=== PATIENT | female | born 1940 | race Caucasian/White ===

== ENCOUNTER 2016-12-12 11:04 | Inpatient (IN) | payer OTHER ==
[2016-12-12] MEDS ORDERED: TYLENOL WITH CODEINE #3 PO ONE (11:31)
[2016-12-12] MEDS ORDERED: MOTRIN PO ONE (11:31)
--- NOTE | 2016-12-12 11:35 | PROVIDER DOCUMENTATION ---
HPI-Musculoskeletal Pain/Inj - GENERAL Chief Complaint: Numbness Stated Complaint: numbness Time Seen by Provider: 12/12/16 11:20 Source: patient - HX OF PRESENT ILLNESS-MUSKULOSKELTAL Nature of Presenting Problem: pt is a 76 y/o brought into the [facility] by [facility] with complaints of numbness on her right side. she complaints of not being able to feel her right hand and her right leg giving out on her. she states this started a few days ago. she also states she did physical therapy on monday was doing well after therapy. she states her head is hurting and she has a hx of migraines. for her migraines she takes tylenol and ibuprofen. she denies and chest pain, nausea, or vomiting. Onset/Duration: 4 days ago Timing: still present Modifying Factors: improves with: nothing Any recent injury?: No Locality of Occurance: Home Similar Symptoms Previously?: No Recently seen or treated by another doctor?: No - FALL INJURY Location of Pain/Injury: reports: head Pain Radiation: reports: no radiation Symptoms prior to fall:: reports: none Loss of Consciousness: no loss of consciousness - TRUNK INJURY Associated Symptoms: reports: other (right hand numbess and right leg numbess) - HIP/PELVIS PAIN/INJURY Pain Radiation: reports: no radiation Associated Symptoms: reports: weakness in legs/feet (weakness in right leg) - LOWER EXTREMITY PAIN/INJURY Lower Extremities Pain: leg: right - UPPER EXTREMITY PAIN/INJURY Extremities Pain Location: hand: right Review of Systems - Adult - REVIEW OF SYSTEMS - ADULT Constitutional: reports: no symptoms reported Eyes: denies: discharge, dry eyes, decreased vision, blurred vision Ears, Nose, Mouth & Throat: denies: ear discharge, ear pain, hearing loss Cardiovascular: denies: chest pain, edema, heart murmur Respiratory: denies: chronic cough, cough Gastrointestinal: reports: no symptoms reported Genitourinary: reports: no symptoms reported Musculoskeletal: reports: no symptoms reported Integumentary: reports: no symptoms reported Neurological: reports: headache/migraines (hx of migraines), numbness (right hand and right leg). denies: seizure, syncope, tremors Psychiatric: reports: no symptoms reported Endocrine: reports: no symptoms reported Hematologic/Lymphatic: reports: no symptoms reported Allergic/Immunologic: reports: no symptoms reported All Other Systems: Reviewed and Negative Past History - Adult - PAST MEDICAL HISTORY-ADULT Review of Records: reports: Nursing Assessment Review Cardiovascular: reports: HTN, heart valve problem (mvp), hyperlipidemia Gastrointestinal: reports: GERD Neurological: reports: headaches/migraines, TIA Endocrine/Immune: reports: Diabetes, thyroid disorder - PRIOR SURGERIES/PROCEDURES Surgical/Procedure History: reports: appendectomy, cholecystectomy, hysterectomy , tonsillectomy, other (cancer removal of the colon) - IMMUNIZATION STATUS Childhood Immunizations: See Nurse Assessment Flu Vaccine: See Nurse Assessment - FAMILY HISTORY Family History: reviewed, not pertinent - SOCIAL HISTORY Smoking: denies Substance Use: none/never Physical Exam-Injury Related - Physical Exam-Injury Related Initial Vital Signs Reviewed: Yes General Appearance: appears well, alert, no apparent distress Eyes: PERRL/EOMI, pink conjunctivae Head, Ears, Nose, Mouth & Throat: moist mucous membranes, normal ENT inspection Neck: non-tender, full range of motion Respiratory: chest non-tender, lungs clear, normal breath sounds, no pleuratic chest pain, no respiratory distress, no accessory muscle use Cardiovascular: normal peripheral pulses, regular rate, rhythm, no edema, no gallop, no JVD, no murmur Abdominal Exam: normal bowel sounds, non tender, soft Extremity: erythema (redness to bilateral lower leg extremities.), swelling ( bilateral lower extremities), other (numbess to right lower leg and right hand) Integumentary: warm/dry, erythema (bilateral lower leg extremities) Neurologic: grossly normal, no motor/sensory deficits Psych/Mental Status: normal mood/affect, normal thought content, normal thought process, oriented x 3 - Glascow Coma Score Best Eye Response ([place]): (4) open spontaneously Best Verbal Response ([place]): (5) oriented Best Motor Response ([place]): (6) obeys commands (15) Progress - PLAN OF CARE/RESULTS Progress/Plan/Lab Results: Orders Category Date Time Status Cardiac Monitoring DIRECTED Care 12/12/16 11:28 Active Finger Stick Blood Sugar (ED) DIRECTED Care 12/12/16 11:28 Active Saline Loc NOW Care 12/12/16 11:28 Active CHEST-1 VIEW [RAD] Stat Exams 12/12/16 11:28 Taken HEAD W/O CONTRAST [CT] Stat Exams 12/12/16 11:28 Taken CBC WITH ELECTRONIC DIFF [HEME] Stat Lab 12/12/16 11:28 Ordered COMPREHENSIVE METABOLIC PANEL [CHEM] Stat Lab 12/12/16 11:[address] Or[address]IME WITH INR PL [COAG] Stat Lab 12/12/16 11:[address] [COAG] Stat Lab 12/12/16 11:28 Ordered TROPONIN T Stat Lab 12/12/16 11:[address] W/POSS RFLX CULT [URINALYSIS] Stat Lab 12/12/16 11:28 Uncollected URINE DRUG SCREEN PL Stat Lab 12/12/16 11:28 Uncollected Acetaminophen with Codeine [Tylenol with Codeine #3] Med 12/12/16 11:31 Discontinued 1 each PO NOW ONE Ibuprofen [Motrin] Med 12/12/16 11:56 Discontinued 400 mg .ROUTE .STK-MED ONE Ibuprofen [Motrin] Med 12/12/16 11:31 Discontinued 400 mg PO NOW ONE EKG [EKG] Stat Ther 12/12/16 11:28 Ordered Vital Signs - 24 hr 12/12/16 11:05 Temperature 97.7 F Pulse Rate 79 Respiratory 18 Rate Blood Pressure 145/70 O2 Sat by Pulse 100 Oximetry Laboratory Tests 12/12/16 12/12/16 12/12/16 12:19 12:19 12:19 WBC 5.34 RBC 2.98 L Hgb 9.0 L Hct 29.4 L MCV 98.7 MCH 30.2 MCHC 30.6 L RDW Std Deviation 13.1 Plt Count 203 MPV 10.0 Immature Gran % (Auto) 0.4 Neut % (Auto) 64.4 Lymph % (Auto) 22.5 Bennett % (Auto) 6.9 Eos % (Auto) 5.2 Baso % (Auto) 0.6 Immature Gran # (Auto) 0.02 Neut # (Auto) 3.44 Lymph # (Auto) 1.20 Bennett # (Auto) 0.37 Eos # (Auto) 0.28 Baso # (Auto) 0.03 PT INR APTT (Factor Assay) Sodium 139 Potassium 4.6 Chloride 107 Carbon Dioxide 21 L Anion Gap 11 BUN 19 Creatinine 1.3 H Estimated GFR/1.73 m2 40 BUN/Creatinine Ratio 15 Glucose 233 H Calculated Osmolality 287 Calcium 9.5 Total Bilirubin < 0.15 L AST 15 ALT 10 Alkaline Phosphatase 133 H Troponin T < 0.010 Total Protein 6.4 Albumin 3.9 Globulin 3.0 Albumin/Globulin Ratio 2.0 Urine Source 12/12/16 12/12/16 12:19 13:15 WBC RBC Hgb Hct MCV MCH MCHC RDW Std Deviation Plt Count MPV Immature Gran % (Auto) Neut % (Auto) Lymph % (Auto) Bennett % (Auto) Eos % (Auto) Baso % (Auto) Immature Gran # (Auto) Neut # (Auto) Lymph # (Auto) Bennett # (Auto) Eos # (Auto) Baso # (Auto) PT 22.1 H INR 1.92 H APTT (Factor Assay) 43.2 Sodium Potassium Chloride Carbon Dioxide Anion Gap BUN Creatinine Estimated GFR/1.73 m2 BUN/Creatinine Ratio Glucose Calculated Osmolality Calcium Total Bilirubin AST ALT Alkaline Phosphatase Troponin T Total Protein Albumin Globulin Albumin/Globulin Ratio Urine Source VOIDED Orders Category Date Time Status Cardiac Monitoring DIRECTED Care 12/12/16 11:28 Active Finger Stick Blood Sugar (ED) DIRECTED Care 12/12/16 11:28 Active Saline Loc NOW Care 12/12/16 11:28 Active CHEST-1 VIEW [RAD] Stat Exams 12/12/16 11:28 Completed HEAD W/O CONTRAST [CT] Stat Exams 12/12/16 11:28 Completed CBC WITH ELECTRONIC DIFF [HEME] Stat Lab 12/12/16 12:19 Completed COMPREHENSIVE METABOLIC PANEL [CHEM] Stat Lab 12/12/16 12:19 Com[address]IME WITH INR PL [COAG] Stat Lab 12/12/16 12:[address] [COAG] Stat Lab 12/12/16 12:19 Completed TROPONIN T Stat Lab 12/12/16 12:[address] W/POSS RFLX CULT [URINALYSIS] Stat Lab 12/12/16 13:[address]UG S[address]EN [address] Stat Lab 12/12/16 13:15 Received Acetaminophen with Codeine [Tylenol with Codeine #3] Med 12/12/16 11:31 Discontinued 1 each PO NOW ONE Ibuprofen [Motrin] Med 12/12/16 11:56 Discontinued 400 mg .ROUTE .STK-MED ONE Ibuprofen [Motrin] Med 12/12/16 11:31 Discontinued 400 mg PO NOW ONE EKG [EKG] Stat Ther 12/12/16 11:28 Draft Vital Signs - 24 hr 12/12/16 11:05 Temperature 97.7 F Pulse Rate 79 Respiratory 18 Rate Blood Pressure 145/70 O2 Sat by Pulse 100 Oximetry - EKG 1 Time of EKG reading by physician:: 12:19 EKG Read and Signed by:: Brando Sanders EKG Interpretation (*Must complete 3 of following elements*): Abnormal (sinus rhythm with occasional PVC's, otherwise noraml ECG) Rate: 77 Rhythm: sinus rhytm with occasional PVC's [place]: normal QRS: normal [place] Interval: normal - XRAY 1 XRAY: Bilateral XRAY Study: Chest Impression: Normal Comparison with other Films: no changes (no change) XRAY Interpretation: Stable chest - CT/MRI 1 CT Study: Head Impression: Abnormal (no hemorrhage. chronic ischemic changes) CT Results: no blood. chronic ischemic changes - CONSULTS/PCP/HOSPITALIST Notification #1 *Consult/PCP/Hospitalist*: dr. holbrook Time Discussed: 14:07 (agrees with admission ) Consult Disposition: Admit Departure - Departure Time of Disposition Order: 14:06 DIAGNOSIS: UTI (urinary tract infection) Qualifiers: Urinary tract infection type: site unspecified Hematuria presence: without hematuria Qualified Code(s): N39.0 - Urinary tract infection, site not specified CVA (cerebral vascular accident) Qualifiers: CVA mechanism: unspecified Qualified Code(s): I63.9 - Cerebral infarction, unspecified Disposition: ADMITTED INPATIENT 09 Certified Medical Emergency: Emergent Condition: Stable Additional Instructions: ED Follow Up Instructions: You have been treated by a care provider in the Emergency Department. These instructions are being provided to you so you can have an understanding of how to care for yourself upon discharge. Upon discharge from the Emergency Department, you are responsible for making arrangements for follow-up care by a physician of your choice. Take all prescribed medications as directed. Return to the Emergency Department immediately for any new or worsening symptoms. You may call the Physician Referral phone number at [phone] to obtain a list of Physicians who are taking new patients. Referrals: Pablo Brown MD [Primary Care Provider] - Attestation - Scribe Verification/Attestation Scribe:: Aleshia Jett Acting as Scribe for:: Brando Sanders Scribe documention review:: This chart was documented by a scribe and accurately reflects the service the provider performed and the decisions made by the provider.
[2016-12-12] MEDS ORDERED: MOTRIN ONE (11:56)
--- NOTE | 2016-12-12 12:07 | Diag Imaging Result Document ---
PROCEDURE NAME: HEAD W/O CONTRAST - 12/12/2016 CT BRAIN WITHOUT CONTRAST: TECHNIQUE: Dose-reduction protocol. COMPARISON: Compared to 10/13/2016. FINDINGS: No parenchymal hemorrhage. No epidural or subdural hematoma. No subarachnoid hemorrhage. I do not identify a mass on this noncontrasted exam. There are chronic microvascular ischemic changes. No hydrocephalus. IMPRESSION: 1. No hemorrhage. 2. Chronic microvascular ischemic changes. A preliminary report was given at 11:50 a.m.
--- NOTE | 2016-12-12 12:08 | Diag Imaging Result Document ---
PROCEDURE NAME: CHEST-1 VIEW - 12/12/2016 CHEST FRONTAL TWO VIEWS: COMPARISON: 10/13/2016. FINDINGS: The lungs are well expanded. The heart is borderline mildly prominent. The vessels are not distended. No pneumonia. No pleural effusions identified. There is a granuloma in the right base. Prior orthopaedic surgery to the right shoulder. IMPRESSION: Stable chest.
[2016-12-12 12:32] LABS: MANUAL DIFF NEEDED? NO
--- NOTE | 2016-12-12 12:37 | EKG Report ---
Test Performed on : 12/12/2016 11:57:12 AM Test Reason : Stroke like symptoms Blood Pressure : / mmHG Vent. Rate : 077 BPM Atrial Rate : 077 BPM P-R Int : 200 ms QRS Dur : 096 ms QT Int : 390 ms P-R-T Axes : 079 065 069 degrees QTc Int : 441 ms Sinus rhythm. with occasional premature ventricular complexes. Otherwise normal ECG When compared with ECG of 13-OCT-2016 10:08, No significant change was found Unconfirmed Result
[2016-12-12 12:52] LABS: BASO% 0.6 % (0.0-0.8); EOS# 0.28 X1000 (0.0-0.7); EOS% 5.2 % (0.0-10.0); HEMATOCRIT 29.4 % (37.0-47.0); IMM GRAN# 0.02 X1000 (0.0-0.04); IMM GRAN% 0.4 % (0.0-0.5); LYMPH% 22.5 % (20.5-51.1); MCH 30.2 PG (27-31); MCHC 30.6 g/dL (33-37); MCV 98.7 FL (81-99); MONO# 0.37 X1000 (0.11-0.59); MONO% 6.9 % (1.7-9.3); NEUT% 64.4 % (42.2-75.2); PLT 203 X1000 (130-400); RBC 2.98 XMIL (4.2-5.4)
[2016-12-12 13:10] LABS: INR 1.92 (0.86-1.15); PROTIME 22.1 Seconds (12.1-15.5)
[2016-12-12 13:11] LABS: PTT PL 43.2 Seconds (22.6-43.9)
[2016-12-12 13:13] LABS: AGAP 11; ALBUMIN 3.9 g/dL (3.5-5.0); ALKALINE PHOSPHATASE 133 U/L (32-104); BUN 19 mg/dL (8-22); CALCIUM 9.5 mg/dL (8.8-10.2); CHLORIDE 107 mmol/L (98-107); COSMO 287; GOT 15 U/L (10-30); GPT 10 U/L (10-36); POTASSIUM 4.6 mmol/L (3.5-5.1); SODIUM 139 mmol/L (136-145); TCO2 21 mmol/L (25-35); TOTAL BILIRUBIN < 0.15 mg/dL (0.20-1.00); TOTAL PROTEIN 6.4 g/dL (6.3-8.3)
[2016-12-12 13:26] LABS: URINE SOURCE VOIDED
[2016-12-12 13:45] LABS: UR AMPHETAMINES QUAL NONE DETECTED (NONE DETECT); UR BARBITUATES QUAL NONE DETECTED (NONE DETECT); UR BENZODIAZEPIN QUAL NONE DETECTED (NONE DETECT); UR CANNABINOIDS QUAL NONE DETECTED (NONE DETECT); UR COCAINE QUAL NONE DETECTED (NONE DETECT); UR MDMA QUAL NONE DETECTED (NONE DETECT); UR METHADONE QUAL NONE DETECTED (NONE DETECT); UR METHAMPHETAMINE QUAL NONE DETECTED (NONE DETECT); UR OPIATES QUAL PRESUMPTIVE POSITIVE (NONE DETECT); UR OXYCODONE QUAL NONE DETECTED (NONE DETECT); UR PCP QUAL NONE DETECTED (NONE DETECT); UR TCA QUAL NONE DETECTED (NONE DETECT)
[2016-12-12 13:48] LABS: BILIRUBIN URINE NEGATIVE (NEGATIVE); BLOOD URINE NEGATIVE (NEGATIVE); CLARITY SL. CLOUDY (CLEAR); COLOR YELLOW; GLUCOSE URINE NEGATIVE (NEGATIVE); LEUKOCYTES URINE 1+ (NEGATIVE); NITRITE URINE POSITIVE (NEGATIVE); PROTEIN URINE NEGATIVE (NEGATIVE); UROBILINOGEN URINE NORMAL
[2016-12-12 13:49] LABS: URINE CULTURE PL NEEDED? YES; URINE EPITHELIAL CELLS <10 /HPF (<10); URINE WBC <10 /HPF (<10)
[2016-12-12] MEDS ORDERED: GENTAMICIN 60 MG in NS 50 ML IV ONE (14:08)
[2016-12-12] MEDS ORDERED: ZOFRAN IV PRN ×2 (14:10→16:14)
[2016-12-12] MEDS ORDERED: TORADOL IV PRN (14:10)
[2016-12-12] MEDS ORDERED: TYLENOL PO PRN (14:10)
[2016-12-12] MEDS: NS 1,000 ML IV SCH ×2 (14:15→18:35)
[2016-12-12 17:16] LABS: HEMOGLOBIN A1C 7.4 % (4.8-6.0)
[2016-12-12] MEDS: SEPTRA DS PO SCH (21:37)
[2016-12-12] MEDS: HUMALOG DOSE (PARKWAY) SUBQ SCH (21:39)
[2016-12-13] MEDS: NS 1,000 ML IV SCH ×3 (01:45→17:14)
--- NOTE | 2016-12-13 05:56 | HISTORY AND PHYSICAL ---
PRIMARY CARE PHYSICIAN: Pablo Brown MD. NEUROLOGIST: Dr. Aguilar. CHIEF COMPLAINT: Right lower extremity weakness. HISTORY OF PRESENT ILLNESS: This is a 76-year-old, female with a history of hypertension, mitral valve prolapse, hyperlipidemia, diabetes mellitus, hypothyroid, and chronic migraines, as well as bipolar disorder who unfortunately has been admitted multiple times over the last 4 months with TIA like symptoms. She has followed up with neurology. She has had outpatient CT, MRI, as well as inpatient CT that were all negative. Symptoms have consistently been migratory, bouncing from the left to the right. At this time, her symptoms are her right upper extremity and right lower extremity. She denies any slurred speech, blurred vision, headache, difficulty with any upper extremity fine motor movements such as putting on makeup, eating, or dressing herself. She has had a recent right shoulder surgery and she does have limited movement but this has been present since surgery. She denies no new symptoms. She states that Monday, she participated in physical therapy. She walked, did her exercises with no difficulty. In fact, they were bragging on how well she did. Then Monday, she states she was unable to move her right lower extremity or hold her weight up, although she was able to get to the bathroom through the weekend, never having an accident on herself or in her bed. She states that these are the same symptoms that she has had with the same migratory pattern that began in June of 2016. She denies any pain, numbness, change in sensation. CT of the head was performed in the emergency room which revealed no hemorrhage, chronic microvascular ischemic changes. She was found to have nitrite positive urine with less than 10 microscopic white blood cells, no reportable microscopic red blood cells but 3+ bacteria. She was given gentamicin IV, and admitted for further evaluation and treatment. PAST MEDICAL HISTORY: Diabetes with poor control, chronic depression, hypertension, mitral valve prolapse, hyperlipidemia, gastroesophageal reflux disease, hypothyroid, chronic migraines, and bipolar disorder. PAST SURGICAL HISTORY: Appendectomy, cholecystectomy, hysterectomy, tonsillectomy, shoulder surgery, and a partial colectomy secondary to colon cancer. ALLERGIES: Levaquin causes altered mental status. Penicillin causes a rash. HOME MEDICATIONS: A list will be obtained by the nursing staff. REVIEW OF SYSTEMS: A 14 point review of systems is discussed with patient with pertinent positives being migrating lower extremity weakness. She denies fever, chills, cough, congestion, dysuria, frequency, urgency, hesitancy, hematuria, constipation, melena, hematochezia, any weight loss or weight gain. PHYSICAL EXAMINATION: GENERAL: This is a 76-year-old, female who is sitting up in the bed, in no distress. VITAL SIGNS: Blood pressure is 137/55, heart rate of 77, respirations are 18, temperature is 97.7 degrees oral, with room air saturations of 100. HEENT: Head is normocephalic, atraumatic. Pupils equal, round, react to light. EOMs are intact. Sclerae anicteric. Mucous membranes are moist. NECK: Supple with trachea midline. CARDIOVASCULAR: Regular rate and rhythm. S1 and S2 appreciated. PULMONARY: Breath sounds are clear. No increased work of breathing noted. GASTROINTESTINAL: Abdomen is soft, nontender, nondistended. Bowel sounds in all 4 quadrants. EXTREMITIES: No clubbing, cyanosis. She does have 2+ pitting edema pretibial and pedal with pulses palpable x4. Calves are nontender. NEUROLOGIC: She is alert and oriented x3. Speech is clear. She has no facial droop. Forehead is spared. No tongue nor uvula deviation. Nasal flaring is equal. Shoulder shrug is equal. She has 5/5 upper extremity strength with no plantar drift. Diabetes Education Coordinator are equal. She has 5/5 finger-to- nose. Lower extremities, she has 5/5 strength. Heel, knee to park is 3/3. SKIN: Warm and dry with erythema noted, pretibial, bilateral. DIAGNOSTICS: WBC is 5.3, with a hemoglobin of 9, hematocrit 29.4, and platelets of 203,000. INR is 1.92. Sodium is 139, potassium 4.6, BUN 19, creatinine 1.3, with glucose of 233, with a hemoglobin A1c of 7.4. Troponin is less than 0.01. Urinalysis revealed positive nitrites with no reportable microscopic red blood cells, less than 10 white blood cells, 3+ bacteria. Urine drug screen is positive for opiates. Head CT revealed no acute processes. ASSESSMENT AND PLAN: 1. Urinary tract infection with cultures pending. 2. Transient neurologic event versus chronic transient ischemic attacks. The patient has had these same migratory symptoms since June of 2016 with negative scans. She has been evaluated by Dr. Aguilar who cannot find a specific neurologic component or cause. We will continue with neurological checks. 3. Diabetes with poor control. Her hemoglobin A1c was 7. We will identify her home medications and continue as appropriate. She will be placed on patterned blood glucose with sliding scale insulin. 4. Hypertension. At present, blood pressures are running in the 120s-130s/50s. We will hold her medications as we evaluate to assure that she does not have hypotension. 5. Reflux. 6. Chronic migraines. 7. Chronic kidney disease it Looks like with a baseline creatinine of 1-1.2 since June of 2015. We will trend her labs and renal dose medications as appropriate. 8. Erythema and edema to her bilateral lower extremities. As she does have a urinary tract infection with this red dimply skin noted, we will start Bactrim to cover any skin as well as urinary bacteria. The patient denies any lower extremity pain. On arrival to the floor, she was able to stand with no assistance, just with myself and a fiber technician on either side. She was able to lift herself up. She was able to hold her weight up and she shifted to turn. Once standing, she did lean backwards. When reminded, she would stand up straight but as soon as she did, she would lean backwards again, stating she was worried that she was going to fall. Physical therapy has been consulted to evaluate. Further treatments pending hospital course. Dictated by ANDER Mccall for Pablo Brown MD
[2016-12-13 06:19] LABS: HEMATOCRIT 28.3 % (37.0-47.0); HEMOGLOBIN 8.5 g/dL (12.0-16.0); MCH 29.3 PG (27-31); MCV 97.6 FL (81-99); MPV 9.9 FL (7.4-10.4); RBC 2.9 XMIL (4.2-5.4)
[2016-12-13] MEDS: PRILOSEC PO SCH (06:25)
[2016-12-13] MEDS: HUMALOG DOSE (PARKWAY) SUBQ SCH ×4 (06:25→21:58)
[2016-12-13 08:16] LABS: ALBUMIN 3.5 g/dL (3.5-5.0); CALCIUM 9.1 mg/dL (8.8-10.2); POTASSIUM 4.9 mmol/L (3.5-5.1); TOTAL BILIRUBIN 0.2 mg/dL (0.20-1.00); TOTAL PROTEIN 5.9 g/dL (6.3-8.3)
[2016-12-13] MEDS: SEPTRA DS PO SCH ×2 (09:47→20:07)
--- NOTE | 2016-12-13 13:02 | PROGRESS NOTE ---
DATE: 12/13/2016 SUBJECTIVE: Patient denies any improvement. She states that she is still weak on her right upper and lower extremities. Still notes that she is leaning to the right. OBJECTIVE: Vital Signs: Temperature 98, pulse 84, respiratory 18, BP 121/40, saturation 90% on room air. General: Patient is well developed, well nourished. Currently in no respiratory distress. She is awake, alert. Neck: Supple. Cardiovascular: Regular rate. Chest: Relatively clear. Abdomen: Soft. Extremities: Seems to have good strength in her right and left lower extremity. ASSESSMENT AND PLAN: 1. Urinary tract infection with gram-negative rods. Continue Bactrim. 2. Right lower extremity weakness. Hopefully this is secondary to her urinary tract infection and will improve. Unfortunately, she has had migratory symptoms off and on since June 2016. She has had right lower weakness, left lower weakness. She has been leaning to the left and now she is leaning to the right. She has not had any CT or MRI changes. We will continue to follow. 3. Diabetes A1c is actually better for her than it has been at 7.4. 4. Hypertension. 5. Reflux. 6. Chronic migraines. PLAN: We will continue to follow. Get physical therapy involved. Continue antibiotics. Further orders as needed.
[2016-12-13] MEDS ORDERED: ZOFRAN PO PRN (16:14)
[2016-12-13] MEDS: GLUCOPHAGE PO SCH (17:14)
[2016-12-13] MEDS: SLOW-MAG PO SCH (20:06)
[2016-12-13] MEDS: KLONOPIN PO SCH (20:06)
[2016-12-13] MEDS: TOPAMAX PO SCH (20:06)
[2016-12-13] MEDS: LAMICTAL PO SCH (20:07)
[2016-12-13] MEDS: ZANTAC PO SCH (20:07)
[2016-12-13] MEDS: PRAVACHOL PO SCH (20:07)
[2016-12-13] MEDS: ABILIFY PO SCH ×2 (20:07)
[2016-12-14] MEDS: NS 1,000 ML IV SCH ×2 (03:20→09:26)
[2016-12-14] MEDS: PRILOSEC PO SCH (06:05)
[2016-12-14] MEDS: HUMALOG DOSE (PARKWAY) SUBQ SCH ×4 (06:05→20:48)
[2016-12-14] MEDS: SYNTHROID PO SCH (06:05)
[2016-12-14] MEDS: SLOW-MAG PO SCH ×3 (09:26→20:54)
[2016-12-14] MEDS: LANTUS INSULIN (PARKWAY) SUBQ SCH (09:26)
[2016-12-14] MEDS: KLONOPIN PO SCH ×3 (09:26→20:55)
[2016-12-14] MEDS: XARELTO PO SCH (09:26)
[2016-12-14] MEDS: DIFLUCAN PO SCH (09:27)
[2016-12-14] MEDS: ZANTAC PO SCH ×3 (09:27→20:54)
[2016-12-14] MEDS: LAMICTAL PO SCH ×3 (09:27→20:55)
[2016-12-14] MEDS: GLUCOPHAGE PO SCH ×2 (09:27→16:00)
[2016-12-14] MEDS: SEPTRA DS PO SCH ×3 (09:27→20:55)
[2016-12-14] MEDS: ASPIRIN EC PO SCH (09:27)
[2016-12-14] MEDS: TOPAMAX PO SCH ×3 (09:27→20:54)
[2016-12-14] MEDS: JANUVIA PO SCH (09:27)
[2016-12-14] MEDS: FLONASE NAS SCH (09:31)
--- NOTE | 2016-12-14 11:00 | PROGRESS NOTE ---
DATE: 12/14/2016 SUBJECTIVE: Patient still complains of right lower extremity weakness. Still feels as though she is falling and leaning to the right even when she is sitting down. She denies any chest pain or palpitations. Denies any fevers or chills. Denies any dysuria or urinary frequency. Denies constipation or melena. OBJECTIVE: Vital signs: Temperature 98 degrees, pulse 74, respiratory 18, BP 140/45, saturation 100% on room air. General: The patient is a well-developed, elderly female who is currently in no respiratory distress. She is awake, alert. Neck: Supple. CV: Regular rate. Chest: Relatively clear. Extremities: She is noted to have weakness of her right lower extremity compared to her left. Skin: No rashes. Neurologic: Patient is awake, alert, oriented. There is 3/5 strength right lower extremity and 5/5 left lower extremity. ASSESSMENT: 1. Urinary tract infection. 2. Cerebrovascular accident. 3. Diabetes with poor control. 4. Sepsis secondary to urinary tract infection. 5. Hypertension. 6. Acute delirium secondary to urinary tract infection. 7. Chronic renal disease. PLAN: We will continue to treat patient with antibiotics. She is currently growing gram-negative rods in the urine. Do not have culture sensitivity. We will add Diflucan in an attempt to prevent candidiasis. We will decrease her IV fluids to 75. Continue to encourage p.o. Further orders as needed.
[2016-12-14] MEDS: TYLENOL WITH CODEINE #3 PO PRN (15:28)
[2016-12-14] MEDS: MOTRIN PO PRN (15:58)
[2016-12-14] MEDS ORDERED: ZOFRAN ODT PO PRN (18:59)
[2016-12-14] MEDS: PRAVACHOL PO SCH ×2 (19:58→20:55)
[2016-12-14] MEDS: ABILIFY PO SCH ×3 (19:58→20:54)
[2016-12-15] MEDS: NS 1,000 ML IV SCH ×2 (00:32→14:42)
[2016-12-15] MEDS: PRILOSEC PO SCH (06:36)
[2016-12-15] MEDS: SYNTHROID PO SCH (06:36)
[2016-12-15] MEDS: HUMALOG DOSE (PARKWAY) SUBQ SCH ×4 (06:37→21:58)
[2016-12-15] MEDS: SLOW-MAG PO SCH ×2 (08:46→20:34)
[2016-12-15] MEDS: ASPIRIN EC PO SCH (08:46)
[2016-12-15] MEDS: JANUVIA PO SCH (08:46)
[2016-12-15] MEDS: DIFLUCAN PO SCH (08:46)
[2016-12-15] MEDS: GLUCOPHAGE PO SCH ×2 (08:46→17:41)
[2016-12-15] MEDS: XARELTO PO SCH (08:46)
[2016-12-15] MEDS: ZANTAC PO SCH ×2 (08:46→20:33)
[2016-12-15] MEDS: LAMICTAL PO SCH ×2 (08:47→20:34)
[2016-12-15] MEDS: FLONASE NAS SCH (08:47)
[2016-12-15] MEDS: LANTUS INSULIN (PARKWAY) SUBQ SCH (08:47)
[2016-12-15] MEDS: TOPAMAX PO SCH ×2 (08:47→20:34)
[2016-12-15] MEDS: KLONOPIN PO SCH ×2 (08:47→20:34)
[2016-12-15] MEDS: SEPTRA DS PO SCH ×2 (08:47→20:34)
--- NOTE | 2016-12-15 09:13 | PROGRESS NOTE ---
DATE: 12/15/2016 SUBJECTIVE: The patient notes that she was able to ambulate to the doorway with help yesterday. She is asking to go home back to [place]. Denies any chest pain, palpitations. Denies any GI or issues. Denies any fevers or chills. OBJECTIVE: Vital Signs: Temp 98.0 degrees, pulse 87, respiratory rate 20, BP 144/49, satting 98% on room air. General: Patient is well developed, well nourished. She is currently in no respiratory distress. She is awake, alert. Neck: Supple. CV: Regular rate. Chest: Relatively clear. Abdomen: Soft. Extremities: Moves all extremities. Neurologic: No focal changes currently. Patient is noted to have 4/5 strength in her right lower and left lower extremity. She does not appear to be leaning to the right at this point. ASSESSMENT: 1. Escherichia coli urinary tract infection sensitive to Bactrim, which she is on. 2. Transient ischemic attack. 3. Metabolic encephalopathy secondary to Escherichia coli urinary tract infection, improved. 4. Diabetes with poor control. A1c is actually improving and currently down to 7. 5. Hypertension. 6. Reflux. 7. Chronic migraines. 8. Chronic kidney disease, stable. PLAN: Will continue patient on Bactrim. Will continue physical therapy. Currently [place] will not allow her to come back until she is able to ambulate better, and therefore we are looking for rehab, as well as continuing physical therapy in the hospital.
[2016-12-15] MEDS: TYLENOL WITH CODEINE #3 PO PRN (11:31)
[2016-12-15] MEDS: MOTRIN PO PRN (11:32)
[2016-12-15] MEDS: ABILIFY PO SCH ×2 (20:33)
[2016-12-15] MEDS: PRAVACHOL PO SCH (20:33)
[2016-12-16] MEDS: NS 1,000 ML IV SCH (05:33)
[2016-12-16] MEDS: HUMALOG DOSE (PARKWAY) SUBQ SCH ×4 (06:24→20:51)
[2016-12-16] MEDS: PRILOSEC PO SCH (06:34)
[2016-12-16] MEDS: SYNTHROID PO SCH (06:34)
--- NOTE | 2016-12-16 08:26 | PROGRESS NOTE ---
DATE: 12/16/2016 SUBJECTIVE: The patient notes that she was able to get out of bed a little bit yesterday. She is having less cough, less shortness of breath, less right-sided weakness. Denies any current chest pains or palpitations. Denies any GI or issues. PHYSICAL EXAMINATION: Vital Signs: Temperature 97, pulse 72, respiratory 20, blood pressure 144/55. General: The patient is a well-developed, elderly female who is currently in no respiratory distress. She is awake, alert. She is feeling better. HEENT: Normocephalic. Neck: Supple. Cardiovascular: Regular rate. Chest: Relatively clear. Abdomen: Soft. Extremities: She is noted to have much better strength in her right upper and lower extremities. She is no longer leaning to the right. Neurologic: No focal changes. LABORATORY DATA: Reviewed. ASSESSMENT: 1. Escherichia coli urinary tract infection sensitive to Bactrim. 2. Acute metabolic encephalopathy secondary to urinary tract infection. 3. Sepsis secondary to Escherichia coli urinary tract infection, resolved. 4. Diabetes. Blood sugars are stable. 5. Hypothyroidism, stable. 6. Chronic reflux. 7. Chronic hypercholesterolemia. 8. History of deep vein thrombosis, currently on Xarelto. We will continue. PLAN: We will continue the patient on her current medications. She is not on anything IV. We will continue to wait for a rehab bed, continue physical therapy, and hopefully home soon.
[2016-12-16] MEDS: LAMICTAL PO SCH ×2 (08:55→20:45)
[2016-12-16] MEDS: ZANTAC PO SCH ×2 (08:55→20:45)
[2016-12-16] MEDS: KLONOPIN PO SCH ×2 (08:56→20:45)
[2016-12-16] MEDS: DIFLUCAN PO SCH (08:56)
[2016-12-16] MEDS: JANUVIA PO SCH (08:56)
[2016-12-16] MEDS: SEPTRA DS PO SCH ×2 (08:56→20:44)
[2016-12-16] MEDS: ASPIRIN EC PO SCH (08:56)
[2016-12-16] MEDS: SLOW-MAG PO SCH ×2 (08:57→20:44)
[2016-12-16] MEDS: FLONASE NAS SCH (08:57)
[2016-12-16] MEDS: GLUCOPHAGE PO SCH ×2 (09:05→17:07)
[2016-12-16] MEDS: TOPAMAX PO SCH ×2 (09:30→20:45)
[2016-12-16] MEDS: LANTUS INSULIN (PARKWAY) SUBQ SCH (09:30)
--- NOTE | 2016-12-16 14:43 | DISCHARGE SUMMARY ---
ADMISSION DATE: 12/12/2016 DISCHARGE DATE: 12/17/2016 DIAGNOSES: 1. Escherichia coli urinary tract infection sensitive to Bactrim. 2. Acute metabolic encephalopathy secondary to urinary tract infection. Resolved. 3. Sepsis secondary to Escherichia coli urinary tract infection. Resolved. 4. Diabetes mellitus. 5. Hypothyroidism. 6. Chronic reflux. 7. Chronic hypercholesterolemia. 8. History of deep venous thrombosis, currently on Xarelto. 9. Bipolar disorder. 10. Chronic kidney disease. DIAGNOSTICS: On 12/12/2016, chest x-ray revealed stable chest, no pneumonia. On 12/12/2016, head CT revealed no hemorrhage, chronic microvascular ischemic changes. MICROBIOLOGY: Urine culture revealed E. coli. HOSPITAL COURSE: Ms. Santos presented to the emergency room complaining of right lower extremity weakness. She has had multiple admissions for the same over the last 4-6 months. It seems that she has consistently been having migratory symptoms bouncing from the left to the right. At this admission her symptoms were her right upper extremity and right lower extremity. She denied any slurred speech, blurred vision, headaches, difficulty with fine motor movements such as putting on makeup, eating or dressing herself. In fact, she was witnessed putting on makeup daily and did well. She stated that when she tried to stand that her legs would not hold her weight up, although soon after admission she stood with myself and another nurse and she was able to bear weight. She was able to shuffle her feet to get to the bedside commode. She would become afraid that she was going to fall and lean backwards, but when reminded she would stand up straight and do well. She was evaluated by physical therapy who did recommend inpatient rehab. Through the hospitalization her mental status cleared and she did return to her normal mental status. She was found have an E coli UTI that was susceptible to Bactrim. This was started and she will be discharged on Bactrim. We did follow electrolytes and replete as appropriate. Her TSH was 1.89. Blood pressures remain 120s to 150s over 50s to 60s. We did continue her home medications. Blood sugars were stable in the 130-200 range. PHYSICAL EXAMINATION: Cardiovascular: Regular rate and rhythm. S1 and S2 appreciated. Pulmonary: Breath sounds clear. No increased work of breathing noted. Chest does rise and fall symmetrically with respiration. Gastrointestinal: Abdomen is soft, nontender, nondistended. Bowel sounds in all 4 quadrants. Extremities: She no longer leans to the right. She does have 4/5 strength to bilateral upper and lower extremities. DISCHARGE ACTIVITY: Will be per rehab physical therapy recommendations. DIET: Diabetic. DISCHARGE VITAL SIGNS: Blood pressure 141/58, with a heart rate of 80, respirations 18, temperature 98 degrees oral, with room air saturations of 100. DISCHARGE MEDICATIONS: Tylenol #3, 1 every 6 hours as needed for pain. Klonopin 0.5 daily. Klonopin 1 mg at bedtime. Diflucan 100 mg daily, to be discontinued 12/27/2016. Prilosec 40 mg daily. Septra DS 1 every 12 hours, to be discontinued 12/27/2016. Abilify 20 mg at bedtime. Enteric-coated aspirin 81 mg daily. Flonase 2 sprays intranasally daily. Lantus insulin 30 units daily. Lamictal 100 mg b.i.d. Synthroid 62.5 mg daily. Magnesium chloride 2 tabs twice a day. Metformin 500 mg b.i.d. with meals. Pravachol 40 mg daily. Zantac 150 mg b.i.d. Xarelto 20 mg daily. Januvia 100 mg daily. Topamax 100 mg at bedtime. Topamax 50 mg q.a.m. DISCHARGE DISPOSITION: She is being discharged to rehab via EMS transport in stable condition. This is a greater than 30 minute discharge. Dictated by ANDER Mccall for Pablo Brown MD
[2016-12-16] MEDS ORDERED: XARELTO PO SCH (17:00)
[2016-12-16] MEDS: PRAVACHOL PO SCH (20:44)
[2016-12-16] MEDS: ABILIFY PO SCH ×2 (20:44)
[2016-12-17] MEDS: TYLENOL WITH CODEINE #3 PO PRN (02:08)
[2016-12-17] MEDS: SYNTHROID PO SCH (06:41)
[2016-12-17] MEDS: HUMALOG DOSE (PARKWAY) SUBQ SCH (06:43)
[2016-12-17] MEDS: PRILOSEC PO SCH (06:43)
[2016-12-17] MEDS: SLOW-MAG PO SCH (08:41)
[2016-12-17] MEDS: JANUVIA PO SCH (08:41)
[2016-12-17] MEDS: ZANTAC PO SCH (08:42)
[2016-12-17] MEDS: KLONOPIN PO SCH (08:42)
[2016-12-17] MEDS: ASPIRIN EC PO SCH (08:42)
[2016-12-17] MEDS: GLUCOPHAGE PO SCH (08:42)
[2016-12-17] MEDS: LAMICTAL PO SCH (08:42)
[2016-12-17] MEDS: SEPTRA DS PO SCH (08:42)
[2016-12-17] MEDS: DIFLUCAN PO SCH (08:42)
[2016-12-17] MEDS: TOPAMAX PO SCH (08:42)
[2016-12-17] MEDS: FLONASE NAS SCH (08:43)
--- NOTE | 2016-12-17 10:39 | PROGRESS NOTE ---
DATE: 12/17/2016 SUBJECTIVE: The patient notes she is feeling a little bit better this morning. She is ready to go to rehab. She denies any chest pain or palpitations. She denies any fevers or chills. PHYSICAL EXAMINATION: Vital Signs: Temperature 97, pulse 80, respiratory rate 18, BP 160/61 to 131/56. General: The patient is well-developed and well-nourished and currently in no real respiratory distress. She is awake, alert, oriented. Neck supple. CV: Regular rate. Chest relatively clear. Abdomen soft, nondistended. Extremities: Moves all extremities well. ASSESSMENT: 1. Escherichia coli urinary tract infection, improved. 2. Sepsis secondary to Escherichia coli urinary tract infection, improved. 3. Metabolic encephalopathy, improved. 4. Bipolar disorder. 5. Diabetes. PLAN: We will discharge the patient later today to rehab. Further orders if needed.
[2016-12-17 11:54] VITALS: BP 143/57
== END 2016-12-17 14:05 | DRG 871 ==
LOC: P.ED 11:04 → P.MEDSURG 11:05 → OBSVTOIN 12-14 10:32
PROVIDERS: ADMIT Family Medicine; ATTEND Family Medicine
DX: A41.9 Sepsis, unspecified organism (principal); G93.41 Metabolic encephalopathy; E11.65 Type 2 diabetes mellitus with hyperglycemia; E11.22 Type 2 diabetes mellitus with diabetic chronic kidney disease; N39.0 Urinary tract infection, site not specified; G45.9 Transient cerebral ischemic attack, unspecified; B96.20 Unspecified Escherichia coli [E. coli] as the cause of diseases classified elsewhere; I12.9 Hypertensive chronic kidney disease with stage 1 through stage 4 chronic kidney disease, or unspecified chronic kidney disease; I34.1 Nonrheumatic mitral (valve) prolapse; N18.9 Chronic kidney disease, unspecified; E78.00 Pure hypercholesterolemia, unspecified; E03.9 Hypothyroidism, unspecified; K21.9 Gastro-esophageal reflux disease without esophagitis; F31.9 Bipolar disorder, unspecified; Z79.899 Other long term (current) drug therapy; Z79.02 Long term (current) use of antithrombotics/antiplatelets; Z86.718 Personal history of other venous thrombosis and embolism; Z90.49 Acquired absence of other specified parts of digestive tract; Z80.0 Family history of malignant neoplasm of digestive organs; Z79.4 Long term (current) use of insulin; Z79.84 Long term (current) use of oral hypoglycemic drugs
CPT/HCPCS: 36415; 70450; 71010; 80053; 80305; 81001; 82948; 83036; 83735; 84100; 84443; 84484; 85025; 85027; 85610; 85730; 87077; 87088; 87186; 93005; 96365; J1580; J1815; J7030; 97110-GO; 97116-GP; 97530-GO; 97530-GP

== ENCOUNTER 2019-12-05 06:15 | Inpatient (IN) ==
--- NOTE | 2019-12-05 06:32 | Diag Imaging Result Doc PS360 ---
CT HEAD W/O CONTRAST - 12/05/2019 INDICATION: UNRESPONSIVE COMPARISON: 08/31/2018 FINDINGS: Stable mild cerebral atrophy. There is stable periventricular white matter chronic microvascular ischemia. No intracranial mass or hemorrhage. The skull is intact. There is moderate sinusitis of the left maxillary sinus. Other sinuses are clear. IMPRESSION: Cerebral white matter chronic microvascular ischemia. Sinusitis. No acute process. This exam was performed using automated exposure control, adjustment of mA or kV according to patient size, and/or use of iterative reconstruction technique Electronically signed by Low Weiss 12/05/2019 6:30 AM
--- NOTE | 2019-12-05 06:38 | PROVIDER DOCUMENTATION ---
HPI-Neurological Disorder - General Stated Complaint: UNRESPONSIVE Time Seen by Provider: 12/05/19 06:27 Allergies/Adverse Reactions: Patient Allergies Allergy/AdvReac Type Severity Reaction Status Date / Time levofloxacin [From Levaquin] Allergy Mild AMS Verified 07/19/19 15:04 Penicillins Allergy Mild RASH Verified 07/19/19 15:04 Home Medications: Home Medication List Medication Instructions Recorded Confirmed Last Taken Type Topiramate [Topamax] 100 mg PO BID 10/19/16 07/19/19 08/30/18 20:00 History Clonazepam [Klonopin] 1 mg PO QHS #15 tablet 09/21/18 07/19/19 Unknown Rx Diltiazem C.d. [Cardizem Cd] 180 mg PO DAILY capsule 09/21/18 07/19/19 Unknown Rx Folic Acid 1 mg PO DAILY tablet 09/21/18 07/19/19 Unknown Rx Furosemide [Lasix] 40 mg PO DAILY tablet 09/21/18 07/19/19 Unknown Rx Insulin Glargine [Basaglar 20 unit SUBQ QAM insuln.pen 09/21/18 07/19/19 Unknown Rx [Nonformulary]] Iron Carbonyl/Ascorbic Acid 1 each PO BID tablet 09/21/18 07/19/19 Unknown Rx [Icar-C] Lamotrigine [Lamictal] 100 mg PO BID tablet 09/21/18 07/19/19 Unknown Rx Levothyroxine [Synthroid] 75 microgm PO DAILY@0700 tablet 09/21/18 07/19/19 Unknown Rx Melatonin 3 mg PO QHS #15 tab 09/21/18 07/19/19 Unknown Rx Omeprazole [Prilosec] 40 mg PO BID@0700,2100 capsule 09/21/18 07/19/19 Unknown Rx Oxycodone I.r. [Oxy Ir] 5 mg PO Q3H PRN PRN #15 tablet 09/21/18 07/19/19 Unknown Rx Polyethylene Glycol 3350 [Miralax] 17 gm PO DAILY PRN #30 powder, 09/21/18 07/19/19 Unknown Rx packet Rivaroxaban [Xarelto] 15 mg PO WSUPPER #30 tab 09/21/18 07/19/19 Unknown Rx Sertraline [Zoloft] 50 mg PO HS #15 tab 09/21/18 07/19/19 Unknown Rx Acetaminophen with Codeine 1 tab PO Q6H PRN 02/15/19 07/19/19 Unknown History [Tylenol with Codeine #3 Tablet] Diphenhydramine [Benadryl] 1 cap PO Q4-6H PRN PRN 02/15/19 07/19/19 Unknown History Insulin Glargine [Basaglar 12 unit SUBQ WSUPPER 02/15/19 07/19/19 Unknown History [Nonformulary]] Loperamide HCl [Loperamide] 1 cap PO DIRECTED PRN 02/15/19 07/19/19 Unknown History Rizatriptan [Maxalt] 1 tab PO DAILY PRN 02/15/19 07/19/19 Unknown History Aripiprazole [Abilify] 15 mg PO QAM 07/19/19 07/19/19 Unknown History Glimepiride 2 mg PO DAILY 07/19/19 07/19/19 Unknown History Hydrocortisone [Preparation H] 26 gm TOPICAL PRN PRN 07/19/19 07/19/19 Unknown History Lorazepam [Ativan] 1 mg PO Q6H PRN PRN 07/19/19 07/19/19 Unknown History Sulfamethoxazole/Trimethoprim 1 ea PO BID #10 tab 07/19/19 Unknown Rx [Bactrim Ds Tablet] - History of Present Illness-Neuro Nature of Presenting Problem: Pt is a 79 y/o female from [facility] who presents with c/o being unresponsive. Per EMS the pt was found to be in her bed and not responding edmar bally. The pt was last seen well at 1 am and then was found this morning. Per EMS. she is not talking or making any effort to talk or respond to pain. Has been moving her hands. Per EMS the pt ambulates independently at baseline. Per EMS the BS was in 130's Review of Systems - Adult - REVIEW OF SYSTEMS - ADULT ROS:: unobtainable per condition Constitutional: denies: fever, fatique Eyes: reports: no symptoms reported Ears, Nose, Mouth & Throat: reports: no symptoms reported Cardiovascular: reports: no symptoms reported Respiratory: reports: no symptoms reported Gastrointestinal: reports: no symptoms reported Genitourinary: reports: no symptoms reported Musculoskeletal: reports: no symptoms reported Integumentary: reports: no symptoms reported Neurological: reports: no symptoms reported Past History - Adult - PAST MEDICAL HISTORY-ADULT Review of Records: reports: Old Records Reviewed, Nursing Assessment Review, Medications Reviewed, Social history reviewed & non-contributory. Major Childhood Illnesses: reports: denies history Cardiovascular: reports: HTN, heart valve problem (mvp), hyperlipidemia Respiratory: reports: sleep apnea Gastrointestinal: reports: GERD Obstetrical/Gynecological: reports: denies history Genitourinary: reports: denies history Musculoskeletal: reports: denies history Neurological: reports: headaches/migraines, TIA Psychiatric: reports: anxiety, bipolar, depression Endocrine/Immune: reports: Diabetes, thyroid disorder Other Conditions: reports: denies history - PRIOR SURGERIES/PROCEDURES Surgical/Procedure History: reports: appendectomy, cholecystectomy, hysterectomy , tonsillectomy, other (cancer removal of the colon) - IMMUNIZATION STATUS Childhood Immunizations: See Nurse Assessment Flu Vaccine: See Nurse Assessment - FAMILY HISTORY Family History: reviewed, not pertinent Physical Exam- Neurological - Physical Exam-Neuro Initial Vital Signs Reviewed: Yes General Appearance: no apparent distress, obese, other (Stuperous) Eye Exam: bilateral eye: normal inspection, PERRL HENMT: normocephalic/atraumatic, normal ENT inspection. negative: moist mucous membranes Head Injury: no evidence of injury. negative: ecchymosis, lacerations, raccoon eyes, swelling Neck: non-tender, other (Stiff) Respiratory: lungs clear, normal breath sounds, no respiratory distress, no acc essory muscle use Cardiovascular: normal peripheral pulses, regular rate, rhythm (with multiple PVC's), no murmur Abdominal Exam: distended Peripheral Pulses: radial (R): 2+, radial (L): 2+, dorsalis-pedis (R): 2+, dorsalis-pedis (L): 2+ Extremity: other (left leg shorter then R) stem sizer Exam: abnormal speech, facial droop, other (pt unable to comprehend the commands) Neurologic: facial droop Integumentary: normal color, warm/dry - Glascow Coma Scale Best Eye Response: (3) open to voice Best Verbal Response: (1) no verbal response Best Motor Response: (4) withdraws to pain Total Glascow Score: 8 Progress - PLAN OF CARE/RESULTS Progress/Plan/Lab Results: Vital Signs - 8 hr 12/05/19 06:30 Temperature 96.8 F L Pulse Rate 83 Respiratory Rate 16 Blood Pressure 138/73 O2 Sat by Pulse Oximetry 97 Laboratory Results - last 24 hr 12/05/19 12/05/19 12/05/19 06:31 06:34 06:34 WBC 7.48 RBC 3.15 L Hgb 10.0 L Hct 32.6 L MCV 103.5 H MCH 31.7 H MCHC 30.7 L RDW Std Deviation 13.9 Plt Count 175 MPV 9.4 Immature Gran % (Auto) 1.3 H Neut % (Auto) 82.5 H Lymph % (Auto) 10.[address] [place] % (Auto) 4.0 Eos % (Auto) 1.5 Baso % (Auto) 0.1 Immature Gran # (Auto) 0.10 H Neut # (Auto) 6.17 Lymph # (Auto) 0.[address] [place] # (Auto) 0.30 Eos # (Auto) 0.11 Baso # (Auto) 0.01 PT 14.9 INR 1.15 PTT (Actin FS) 51.4 H POC Glucose 141 H Urine Source Urine Color Urine Turbidity Urine pH Ur Specific [place] Urine Protein Ur Glucose (Stick) Ur Ketones (Stick) Urine Blood Urine Nitrite Urine Bilirubin Urobilinogen Dipstick Urine Leukocytes Urine WBC (Auto) Urine RBC (Auto) U Epithel Cells (Auto) Urine Bacteria (Auto) 12/05/19 06:55 WBC RBC Hgb Hct MCV MCH MCHC RDW Std Deviation Plt Count MPV Immature Gran % (Auto) Neut % (Auto) Lymph % (Auto) [place] % (Auto) Eos % (Auto) Baso % (Auto) Immature Gran # (Auto) Neut # (Auto) Lymph # (Auto) [place] # (Auto) Eos # (Auto) Baso # (Auto) PT INR PTT (Actin FS) POC Glucose Urine Source CATH Urine Color YELLOW Urine Turbidity CLEAR Urine pH 6.0 Ur Specific [place] 1.009 Urine Protein NEGATIVE Ur Glucose (Stick) NEGATIVE Ur Ketones (Stick) NEGATIVE Urine Blood NEGATIVE Urine Nitrite NEGATIVE Urine Bilirubin NEGATIVE Urobilinogen Dipstick NORMAL Urine Leukocytes LARGE A Urine WBC (Auto) 10-20 A Urine RBC (Auto) <10 U Epithel Cells (Auto) <10 Urine Bacteria (Auto) 2+ Orders Category Date Time Status Aspiration Precautions DIRECTED Care 12/05/19 06:55 Active Cardiac Monitoring DIRECTED Care 12/05/19 06:40 Active Finger Stick Blood Sugar (ED) DIRECTED Care 12/05/19 06:40 Active Uriostegui Cath Insertion ORDERED Care 12/05/19 06:55 Active Saline Loc NOW Care 12/05/19 06:40 Active CHEST-PORTABLE [RAD] Stat Exams 12/05/19 06:[address] HEAD W/O CONTRAST [CT] Stat Exams 12/05/19 06:14 Completed CBC WITH ELECTRONIC DIFF [HEME] Stat Lab 12/05/19 06:34 Completed COMPREHENSIVE METABOLIC PANEL [CHEM] Stat Lab 12/05/19 06:34 Received PROTIME WITH INR [COAG] Stat Lab 12/05/19 06:34 Completed PTT [COAG] Stat Lab 12/05/19 06:34 Completed TROPONIN T HIGH SENSITIVITY Stat Lab 12/05/19 06:34 Received URINALYSIS W/POSS RFLX CULT [URINALYSIS] Stat Lab 12/05/19 06:55 Completed URINE DRUG SCREEN Stat Lab 12/05/19 06:55 Received 0.9% Sodium Chloride Inj [Ns] 1,000 ml Med 12/05/19 06:40 Active IV 999 mls/hr EKG [EKG] Stat Ther 12/05/19 06:40 Ordered Result Diagrams: 12/05/19 06:34 12/05/19 06:34 - CONSULTS/PCP/HOSPITALIST Notification #1 *Consult/PCP/Hospitalist*: DYLAN Time Discussed: 08:59 Consult Disposition: Admit (ok to admit to DR Gr) - CHANGE OF SHIFT REPORT (ED Provider) 1 Report Given and Care Transferred to:: Dr Borrego Time of Transfer: 07:00 Items Pending: Labs, XRAY Results, CT/MRI Results Departure - Departure Date of Disposition Decision: 12/05/19 Time of Disposition Decision: 08:59 DIAGNOSIS: Unresponsive state UTI (urinary tract infection) Qualifiers: Urinary tract infection type: site unspecified Hematuria presence: without hematuria Qualified Code(s): N39.0 - Urinary tract infection, site not specified Disposition: ADMITTED INPATIENT 09 Certified Medical Emergency: Emergent Condition: Fair Referrals and Follow-Ups: Pablo Brown MD [Primary Care Provider] - - Critical Care Note This patient required my direct & personal management of CC.: No Attestation - Physician/ HANG Attestation Patient care was provided by Advanced Practice Provider:: No The physician spent face to face time with patient:: Yes Advanced Practice Provider documentation review:: Supervising physician onsite and consulted in the evaluation and care of this patient. The physician did have a face to face encounter with the patient. - NIH Stroke Scale NIH Type: Initial Evaluation Level of Consciousness: 2-Stuporous, requires repeat stimulation to attend Modified [place] Score Criteria: 5-severe disability
[2019-12-05] MEDS ORDERED: NS 1,000 ML IV PRN (06:40)
[2019-12-05 06:58] LABS: URINE SOURCE CATH
[2019-12-05 07:02] LABS: INR 1.15; PROTIME 14.9 Seconds (11.0-16.0)
[2019-12-05 07:03] LABS: PTT 51.4 Seconds (22.3-41.8)
[2019-12-05 07:04] LABS: BASO# 0.01 X1000 (0.0-0.2); BASO% 0.1 % (0.0-0.8); EOS# 0.11 X1000 (0.0-0.7); EOS% 1.5 % (0.0-10.0); HEMATOCRIT 32.6 % (37.0-47.0); IMM GRAN% 1.3 % (0.0-0.5); LYMPH# 0.79 X1000 (1.2-3.4); LYMPH% 10.6 % (20.5-51.1); MCH 31.7 PG (27-31); MCHC 30.7 g/dL (33-37); MCV 103.5 FL (81-99); MPV 9.4 FL (7.4-10.4); NEUT# 6.17 X1000 (1.4-6.5); NEUT% 82.5 % (42.2-75.2); PLT 175 X1000 (130-400); RBC 3.15 XMIL (4.2-5.4); RDW 13.9 % (11.5-14.5); WBC 7.48 X1000 (4.8-10.8)
[2019-12-05 07:07] LABS: BILIRUBIN URINE NEGATIVE (NEGATIVE); BLOOD URINE NEGATIVE (NEGATIVE); COLOR YELLOW; GLUCOSE URINE NEGATIVE (NEGATIVE); KETONE URINE NEGATIVE (NEGATIVE); LEUKOCYTES URINE LARGE (NEGATIVE); NITRITE URINE NEGATIVE (NEGATIVE); PROTEIN URINE NEGATIVE (NEGATIVE); SP GRAVITY URINE 1.009; TURBIDITY URINE CLEAR (CLEAR); UROBILINOGEN URINE NORMAL (NORMAL)
[2019-12-05 07:08] LABS: UR EPITHELIAL CELLS <10 /HPF (<10); URINE BACTERIA 2+ /HPF; URINE RBC <10 /HPF (<10)
--- NOTE | 2019-12-05 07:40 | Diag Imaging Result Doc PS360 ---
CHEST-PORTABLE - 12/05/2019 INDICATION: stroke like symptoms COMPARISON: 09/20/2018 FINDINGS: There are extensive bilateral infiltrates, worse in the upper lobes. Heart size is slightly enlarged. There are probably small pleural effusions. IMPRESSION: Probable congestive heart failure. Electronically signed by Low Weiss 12/05/2019 7:37 AM
[2019-12-05 07:47] LABS: ALB/GLOB RATIO 1.3; ALBUMIN 3.9 g/dL (3.5-5.0); CALCIUM 9.7 mg/dL (8.8-10.2); CREATININE 1.3 mg/dL (0.5-0.9); POTASSIUM 4.3 mmol/L (3.5-5.1); TOTAL BILIRUBIN 0.24 mg/dL (0.20-1.00); TOTAL PROTEIN 6.8 g/dL (6.3-8.3)
[2019-12-05 07:47] LABS: UR AMPHETAMINES QUAL NONE DETECTED (NONE DETECT); UR BARBITUATES QUAL NONE DETECTED (NONE DETECT); UR BENZODIAZEPIN QUAL NONE DETECTED (NONE DETECT); UR CANNABINOIDS QUAL NONE DETECTED (NONE DETECT); UR COCAINE QUAL NONE DETECTED (NONE DETECT); UR METHADONE QUAL NONE DETECTED (NONE DETECT); UR OPIATES QUAL NONE DETECTED (NONE DETECT); UR OXYCODONE QUAL NONE DETECTED (NONE DETECT); UR PCP QUAL NONE DETECTED (NONE DETECT)
[2019-12-05] MEDS ORDERED: ZOSYN 2.25 GM in NS 50 ML IV ONE (08:52)
--- NOTE | 2019-12-05 08:55 | EKG Report ---
Test Performed on : 12/05/2019 07:23:15 AM Test Reason : Stroke like symptoms Blood Pressure : / mmHG Vent. Rate : 072 BPM Atrial Rate : 072 BPM P-R Int : 222 ms QRS Dur : 116 ms QT Int : 434 ms P-R-T Axes : 045 022 074 degrees QTc Int : 475 ms Sinus rhythm. with 1st degree AV block. with frequent premature ventricular complexes. Otherwise normal ECG When compared with ECG of 14-FEB-2019 23:14, QRS duration has increased Borderline criteria for Inferior infarct are no longer present Unconfirmed Result
[2019-12-05] MEDS ORDERED: ROCEPHIN 1 GM in NS 50 ML IV ONE (09:18)
--- NOTE | 2019-12-05 10:01 | HISTORY AND PHYSICAL ---
HISTORY OF PRESENT ILLNESS: Ms. Sanots came from [facility]. Apparently, this morning, she just did not seem as responsive, and more lethargic, and was not eating or drinking, and they sent her to the emergency room. I do not have much more history than that. There was really no focal neurologic deficit, just in general. She was weak and not moving her extremities. Her mouth and mucous membranes looked very dry. She would open her eyes. Her pupils were reactive. I am not sure if she understood what we were saying or not. Her vital signs looked stable. PAST MEDICAL HISTORY: 1. Hypertension. 2. Mitral valve prolapse. 3. Hyperlipidemia. 4. Sleep apnea. 5. Gastroesophageal reflux disease. 6. History of TIAs in the past. 7. Diabetes mellitus type 2. 8. Hypothyroidism. 9. Bipolar depression. PAST SURGICAL HISTORY: 1. Status post appendectomy. 2. Status post cholecystectomy. 3. Hysterectomy. 4. Tonsillectomy. 5. Colon resection. 6. Right shoulder surgery. FAMILY HISTORY: I do not have much about family history. She is not able to give me much. The family was not at the bedside. SOCIAL HISTORY: Lives in assisted living at [facility]. I do not have any history of alcohol, tobacco, or illicit drugs. PHYSICAL EXAMINATION: HEENT: In the emergency room, her eyes were open. Her pupils were reactive. VITAL SIGNS: Temperature was 97.9 degrees, pulse 70, respirations 14, blood pressure 138/73. NECK: No distended neck veins. CVP appeared less than 6 cm in the right atrium. No cervical adenopathy. Neck was supple. PULSES: Carotid, radial, and femoral pulses appeared to be 2+ and symmetrical. LUNGS: Clear anterolateral. CARDIOVASCULAR EXAMINATION: Regular rhythm and rate without murmur or S3. PMI nondisplaced. ABDOMEN: Soft, nondistended. SKIN: Warm and dry. No real pedal edema. Mucous membranes were dry. Color of conjunctivae looked good. No oral or nasal mucosa lesions. Did not see any focal inflammation in her joints. LABORATORY DATA: White count is 7480, hematocrit is 32, platelet count is 175,000. Sodium 142, potassium 4.3, chloride 102, BUN is 39, creatinine 1.3, blood sugar is 139, calcium is 9.7. Alkaline phosphatase is 245, albumin is 3.9. Urine toxicology was negative for opiates, oxycodone, methadone, barbiturates, phencyclidine, amphetamines, benzodiazepines, urine cocaine and cannabinoids. Urine showed 2+ bacteria. There are 10 to [address] of her head without contrast, cerebral white matter chronic microvascular ischemia, sinusitis. No acute process seen. Chest x-ray, probable congestive heart failure. They said extensive bilateral infiltrates, worse in the upper lobes. Heart size is slightly enlarged. Probably small pleural effusion. ASSESSMENT AND PLAN: 1. We are going to treat her as possible pneumonia as well. We are going to give her Zosyn. She is from assisted living. We will treat her for a possible urinary tract infection, although the urinary sediment is not real impressive. She appears to be dehydrated and volume depleted. We are going to have to be careful because she has a history of congestive heart failure, but we are going to start off with normal saline at 100 mL an hour for 8 hours and then cut it down to 85 mL an hour. Looking back, I see where she was seen by cardiology back in 2018. At that time, they had performed an open reduction and internal fixation of the left distal femur with a locking sideplate and the patient was found to be anemic. Gave her a blood transfusion. Her urine grew out Klebsiella at that time and she was treated for a urinary tract infection. She has a history of Sabi's thyroiditis, history of colon cancer, and she has had a history of hypertension. I think they treated her for postoperative pneumonia. She had paroxysmal atrial fibrillation with type 2 myocardial infarction related to mismatch supply at that time. I do not see an evaluation of the left ventricle and I think we need to get that. We will get an echocardiogram with Doppler to look at her left ventricular function. She has had a history of mitral valve prolapse. 2. History of hypertension. 3. History of sleep apnea. I think we probably ought to check some blood gases. We will check some blood gases and see where we are. We will give her some oxygen per nasal cannula just at 2 L right now. 4. She has a history of transient ischemic attacks. I do not have any details. 5. Diabetes mellitus type 2. We will pattern sugars and check and give her sliding scale. 6. History of bipolar illness. MEDICATIONS: Looking at her medications, she takes Tylenol #3 with codeine q.6 hours p.r.n. Obviously, we are going to hold that. She is on Abilify 15 mg p.o. q.a.m. We will continue that. The Klonopin was 1 mg p.o. at bedtime. Right now, she is not cooperating swallowing so we will hold those. We will see if we can get her to take the Cardizem CD. She takes 180 mg p.o. daily. Folic acid 1 mg a day. I will hold the Lasix. She was taking that 40 mg a day. We will hold the glimepiride and I am going to hold her insulin. Her blood sugar here was 139 so she will be NPO. We may need to pursue an MRI of her head so I think we will go ahead and order that, get an MRI of her head. cc: Carson Burden MD
[2019-12-05] MEDS ORDERED: NS 1,000 ML IV ONE (10:32)
[2019-12-05] MEDS ORDERED: ZOFRAN IV PRN (10:32)
[2019-12-05] MEDS ORDERED: VANCOMYCIN IV PER PHARMACY MISC SCH (11:00)
[2019-12-05 11:22] LABS: ALLEN TEST YES; BE 0.5 mmoll (-3.0-3.0); BLOOD TYPE ARTERIAL; HCO3-(ACT) 25.3 mmoll (20.0-26.0); METHB 0.2 % (0.0-1.5); O2(CT) 11.4 mL/dL (15.0-23.0); O2HB 92.5 % (95.0-99.0); PCO2(98.6) 45 mmHg (35-45); PO2(98.6) 64 mmHg (60-100); SAMPLE BLOOD; SAO2 95.4 % (95.0-100.0); THB 8.7 g/dL (11.5-17.4); pH(98.6) 7.37 (7.35-7.45)
[2019-12-05] MEDS ORDERED: VANCOMYCIN 2,200 MG in NS 500 ML IV ONE (12:00)
--- NOTE | 2019-12-05 12:43 | Diag Imaging Result Doc PS360 ---
EXAM: MRI BRAIN W/O CONTRAST 12/05/2019 HISTORY: Unresponsive TECHNIQUE: T1 sagittal and axial, axial T2, FLAIR, DWI, [place], and coronal gradient echo. COMMENT: There is some periventricular white matter hyperintensity on the T2-weighted images.. There is mucosal thickening in the left maxillary sinus. There is no evidence of intracranial bleed, mass effect, or abnormal extra-axial fluid collection. There is no evidence of restricted diffusion. There is a small focus of hemosiderin in the rostrum of corpus callosum on the left. There are also punctate areas of decreased signal intensity on the [place] series in the right cerebellar hemisphere. IMPRESSION: Chronic ischemic microvascular changes. No evidence of acute intracranial disease. The possibility of previous microhemorrhages, particularly in the cerebellum cannot be excluded. Electronically signed by Matteo Chino 12/05/2019 12:41 PM
[2019-12-05] MEDS: HUMALOG SUBQ SCH ×3 (13:04→22:28)
[2019-12-05 13:11] LABS: FERRITIN 337 ng/mL (13-150); FREE T4 1.09 ng/dL (0.93-1.70)
[2019-12-05 13:21] LABS: TSH 11.35 uIUmL (0.27-4.20)
[2019-12-05] MEDS: VANCOMYCIN 1,900 MG in NS 500 ML IV SCH (13:27)
[2019-12-05] MEDS: ZOSYN 2.25 GM in NS 50 ML IV SCH ×2 (18:15→22:27)
[2019-12-05] MEDS: NS 1,000 ML IV SCH ×2 (20:59→22:28)
[2019-12-06] MEDS: ZOSYN 2.25 GM in NS 50 ML IV SCH ×4 (05:42→20:42)
[2019-12-06] MEDS: NS 1,000 ML IV SCH (05:42)
[2019-12-06 06:24] LABS: BASO# 0.03 X1000 (0.0-0.2); BASO% 0.5 % (0.0-0.8); EOS# 0.11 X1000 (0.0-0.7); EOS% 1.7 % (0.0-10.0); HEMATOCRIT 27.6 % (37.0-47.0); HEMOGLOBIN 8.3 g/dL (12.0-16.0); IMM GRAN# 0.07 X1000 (0.0-0.04); IMM GRAN% 1.1 % (0.0-0.5); LYMPH# 0.44 X1000 (1.2-3.4); MCH 31.8 PG (27-31); MCHC 30.1 g/dL (33-37); MCV 105.7 FL (81-99); MONO# 0.37 X1000 (0.11-0.59); MONO% 5.8 % (1.7-9.3); MPV 9.6 FL (7.4-10.4); NEUT# 5.31 X1000 (1.4-6.5); NEUT% 83.9 % (42.2-75.2); PLT 167 X1000 (130-400); RBC 2.61 XMIL (4.2-5.4); RDW 14.2 % (11.5-14.5); WBC 6.33 X1000 (4.8-10.8)
[2019-12-06 06:44] LABS: CALCIUM 9.4 mg/dL (8.8-10.2); CREATININE 1.2 mg/dL (0.5-0.9); POTASSIUM 4.2 mmol/L (3.5-5.1)
[2019-12-06] MEDS: HUMALOG SUBQ SCH ×4 (06:50→20:44)
[2019-12-06 07:58] LABS: LYMPHS 4 % (21-51); SEGS 90 % (42-75)
[2019-12-06] MEDS ORDERED: NS 1,000 ML IV SCH (09:10)
--- NOTE | 2019-12-06 09:56 | PROGRESS NOTE ---
DATE: 12/06/2019 SUBJECTIVE: She at times is responsive and opens her eyes. OBJECTIVE: Vital Signs: She is afebrile. Temperature 97.8 degrees, pulse 94, respirations 19, blood pressure 140/80. HEENT: Pupils are equal and round. Lungs: Clear in all lung valenzuela. Cardiovascular: Regular rhythm and rate without murmur or S3. Abdomen: Soft. Skin: Warm and dry. Urine output is 2600 mL. IMAGING: Brain MRI was done, chronic ischemic vascular changes. No evidence of acute intracranial disease. Possibility of previous microhemorrhages, particularly in his cerebellum, could not be excluded. ASSESSMENT AND PLAN: She has a long history of bipolar. She had a manic episode last year. A hard year last year in that she broke her distal femur and she has been treated for urinary tract infections. Her urine grew out Klebsiella at 1 time, and she has not been able to walk in a good length of time and family does not expect she ever will be able to walk, just been getting weaker. Going to continue her broad-spectrum antibiotics. I am not sure we know the focus of infection. We are going to treat for possible pneumonia, possible urinary tract infection. She also had C diff that was positive in stool. C diff toxin was negative, but C diff antigen was positive, so I will add Flagyl to her antibiotics and give her some fluids. The were told she has congestive heart failure and so I do want to get an echocardiogram. I was told she had one yesterday so we will order one for bedside. I do not see where one was ordered, and add Flagyl to her regimen. She is getting vancomycin and Zosyn right now. We will increase her fluids. I am going to give her a rectal tube to help. She has some minor ulcers on her sacrum and she is having liquid stool. cc: Carson Burden MD
[2019-12-06] MEDS: FLAGYL 500 MG/NS 500 MG/100 ML IVPB IV SCH ×3 (11:00→20:44)
[2019-12-06] MEDS: TYLENOL PO PRN ×2 (13:11→20:43)
--- NOTE | 2019-12-06 14:55 | ECHO REPORT ---
ORDER DATE: 12/05/2019 INTERPRETING PHYSICIAN: Dr. Mathieu Christianson ECHOCARDIOGRAPHIC MEASUREMENTS: 1. Interventricular septum 0.9. 2. Left ventricular posterior wall 1.2. 3. Diastolic diameter 3.7. 4. Left atrium 4. 5. Aorta 2.6. SUMMARY OF THE 2-DIMENSIONAL IMAGIN. Technically suboptimal study. Very poor acoustic window. 2. Aortic valve leaflets were trileaflet. 3. Pulmonic valve not well visualized. 4. Tricuspid valve was normal. 5. Mitral valve was normal. There is mild thickening of the mitral valve leaflets with moderate mitral annular calcification. 6. Peak velocity across the aortic valve less than 2 m/sec. There is no aortic stenosis or regurgitation. 7. There is moderate mitral regurgitation. 8. Peak velocity across the tricuspid valve less than 2 m/sec. 9. Normal left ventricular cavity size. Estimated ejection fraction of 55%. 10. Endocardium not well visualized in all views. 11. There is no pericardial effusion. cc: MD Yamileth Vargas CRNP
[2019-12-06] MEDS: VANCOMYCIN 1,900 MG in NS 500 ML IV SCH (23:32)
[2019-12-07] MEDS: FLAGYL 500 MG/NS 500 MG/100 ML IVPB IV SCH ×2 (03:45→08:57)
[2019-12-07] MEDS: ZOSYN 2.25 GM in NS 50 ML IV SCH ×2 (03:45→08:56)
[2019-12-07] MEDS: HUMALOG SUBQ SCH ×2 (06:26→11:04)
[2019-12-07] MEDS ORDERED: MIRALAX PO PRN (11:05)
--- NOTE | 2019-12-07 11:37 | PROGRESS NOTE ---
DATE: 12/07/2019 SUBJECTIVE: Ms. Santos is awake today and comfortable, breathing well. She is swallowing good. She is alert and oriented x3. OBJECTIVE: Vital signs: Temperature 96.5 degrees, pulse 70, respirations 20, blood pressure 119/55. HEENT: Pupils are equal and round. Lungs: Clear in all lung valenzuela. Cardiovascular: Regular rhythm and rate without murmur or S3. Abdomen: Soft. Skin: Warm and dry. URINE OUTPUT: 2800 mL. DIAGNOSTIC DATA: Echocardiogram, technically suboptimal study. Aortic valve leaflets were trileaflet. Pulmonic valve not well visualized. Tricuspid valve normal. Mitral valve was normal. Her left ventricular function looked good with an ejection fraction of 55%. Normal cavity size. No sign of pericardial effusion. ASSESSMENT AND PLAN: 1. We are treating her for possible pneumonia. Her chest x-ray showed probable congestive heart failure but her left ventricular function looks good. Echocardiogram was very encouraging. Remains afebrile. 2. History of hypertension. 3. Sleep apnea. Her air and gas exchange look good. 4. History of transient ischemic attacks in the past. I do not see any sign of focal neurologic deficits. 5. Diabetes mellitus type 2. Sugars appear under good control. 6. History of bipolar disorder. REVIEW OF HER ORDERS: She is on Flagyl 500 mg IV q.6, vancomycin 1900 mg IV q.36, Zosyn 2.25 g IV q.6. REVIEW OF HER HOME MEDICATIONS: She was on Tylenol with codeine. She is taking Abilify 15 mg a day. She is on Cardizem CD 180 mg daily, folic acid 1 mg daily, Lasix 40 mg a day, Glimepiride 2 mg p.o. daily, SoloStar 30 units at bedtime, Icar-C 1 b.i.d. Lamictal 150 mg b.i.d., Synthroid 75 mcg daily, Ativan 1 mg q.6 hours, melatonin 3 mg at bedtime, MiraLAX 17 g daily, Xarelto 15 mg p.o. daily, Maxalt 100 mg daily, Zoloft 100 mg at bedtime, and Topamax 100 mg b.i.d. Currently were we are just on the Zosyn and vancomycin. I will put her back on her Abilify and will put her back on a regular diet. We will also put her back on her EvolveMolzem CD and in watching her sugars, they look good. cc: Carson Burden MD
--- NOTE | 2019-12-07 12:46 | DISCHARGE SUMMARY ---
ADMISSION DATE: 12/05/2019 DISCHARGE DATE: 12/07/2019 SUMMARY: BRIEF HISTORY: A patient of Dr. Pablo Brown. She was at [facility]. The morning of admission on 10/04/2020, she seemed to be less responsive, more lethargic, not eating and drinking as much and there were no focal neurologic deficits, but she was weak and had trouble waking up and moving in her extremities. Mucous membranes looked very dry, pupils were reactive though. PAST MEDICAL HISTORY: 1. Hypertension. 2. Mitral valve prolapse. 3. Hyperlipidemia. 4. Sleep apnea. 5. Gastroesophageal reflux disease. 6. History of TIA's in the past. 7. Diabetes mellitus type 2. 8. Hypothyroidism. 9. Bipolar depression. PAST SURGICAL HISTORY: 1. Status post appendectomy. 2. Status post cholecystectomy. 3. Hysterectomy. 4. Tonsillectomy. 5. Colon resection. 6. Right shoulder surgery. ADMISSION DIAGNOSES/HOSPITAL COURSE: We thought possible infection such as pneumonia, put her on broad-spectrum antibiotics. Also treated for a urinary tract infection. There was a history of congestive heart failure and so I gave her some fluid. She appeared to remain in sinus rhythm. She had a history of hypertension, history of sleep apnea, and a history of transient ischemic events in the past, diabetes mellitus type 2. We followed her sugars. History of bipolar illness. She remained fairly lethargic. The family wanted to make her no code. The following morning on 12/07/2019, she was awake and she recognized her children, all of her children were here, and there were no focal deficits, no real complaints and we were going to put her back on some of her medications. I did not find any evidence of overt infection. REVIEW OF LABORATORY DATA: Her hematocrit was 27, hemoglobin 8.3, it had dropped a little bit after giving fluids; when she presented, it was 32 and electrolytes and blood sugar look good. Creatinine was 1.2, sodium 144, potassium 4.2, chloride 108, BUN 31, creatinine 1.2. She appeared to have a seizure, tonic-clonic event, and then her heart rate dropped and she went flat line and was pronounced . Family was at the bedside. It looked like it was sinus bradycardia and then deteriorated into asystole. cc: Carson Burden MD
[2019-12-07 13:20] VITALS: BP 153/77
[2019-12-07] MEDS ORDERED: ICAR-C PO SCH (21:00)
[2019-12-08] MEDS ORDERED: SYNTHROID PO SCH (07:00)
[2019-12-08] MEDS ORDERED: ABILIFY PO SCH (09:00)
[2019-12-08] MEDS ORDERED: FOLIC ACID PO SCH (09:00)
== END 2019-12-07 11:52 | disposition expired | DRG 193 ==
LOC: SUPCPDRO → ED 06:15 → EDIPHOLD 10:12 → ICU 19:37
PROVIDERS: ATTEND Emergency Medicine